=== PATIENT | male | born 1990 | race Caucasian/White ===

== ENCOUNTER 2017-10-02 08:53 | Emergency (ER) | payer MEDICAID, OTHER ==
[2017-10-02 09:00] VITALS: BP 131/84; PULSE 86; RESP 20; TEMP 98
[2017-10-02] MEDS ORDERED: ERYTHROMYCIN 5 MG/GM OPHTH OINT 3.5 GM TUBE RIGHT EYE STA (09:21)
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
== END 2017-10-02 10:25 | disposition home or self-care (01) ==
LOC: EC 08:53
DX: S00.03XA Contusion of scalp, initial encounter (principal); S00.11XA Contusion of right eyelid and periocular area, initial encounter; S00.83XA Contusion of other part of head, initial encounter; F17.200 Nicotine dependence, unspecified, uncomplicated; Y04.0XXA Assault by unarmed brawl or fight, initial encounter; Y92.524 Gas station as the place of occurrence of the external cause
CPT/HCPCS: 70450; 70486; 72125; 99284

== ENCOUNTER 2021-06-27 09:52 | Emergency (ER) | payer BC ==
[2021-06-27 10:12] VITALS: RESP 16; TEMP 98
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
[2021-06-27] MEDS ORDERED: IBUPROFEN 600 MG TAB PO STA (11:04)
[2021-06-27 11:25] VITALS: BP 118/71; PULSE 62
[2021-06-27 11:43] LABS: Appearance,Urine Clear (Clear); Bilirubin,Urine Negative (Negative); Blood,Urine Negative (Negative); Color,Urine Yellow; Glucose,Urine (UA) Negative (Negative); Ketones,Urine Negative (Negative); Leukocyte Esterase,Urine Negative (Negative); Nitrite,Urine Negative (Negative); PH, Urine 5.5 (5.0-8.0); Protein,Urine Negative (Negative); Specific Gravity,Urine 1.026 (1.001-1.035); Urobilinogen,Urine <2.0 mg/dL (<2.0)
[2021-06-27] MEDS ORDERED: LIDOCAINE 5% PATCH TOPICAL STA (12:06)
[2021-06-28] MEDS ORDERED: LIDOCAINE 5% PATCH TOPICAL SCH (09:00)
== END 2021-06-27 12:16 | disposition home or self-care (01) ==
LOC: EC 09:52
DX: S39.012A Strain of muscle, fascia and tendon of lower back, initial encounter (principal); F17.200 Nicotine dependence, unspecified, uncomplicated; F12.90 Cannabis use, unspecified, uncomplicated; X50.0XXA Overexertion from strenuous movement or load, initial encounter
CPT/HCPCS: 81003; 99283

== ENCOUNTER 2022-10-10 15:47 | Emergency (ER) | payer BC, OTHER ==
[2022-10-10 15:55] VITALS: BP 137/99; PULSE 113; RESP 20; TEMP 98.2
[2022-10-10] MEDS ORDERED: DIPH,PERTUS(ACELL)TETVAC-LF 0.5 ML VIAL IM ONE (16:44)
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
== END 2022-10-10 19:03 | disposition home or self-care (01) ==
LOC: EC 15:47
DX: S06.0X0A Concussion without loss of consciousness, initial encounter (principal); S02.2XXA Fracture of nasal bones, initial encounter for closed fracture; S70.311A Abrasion, right thigh, initial encounter; S10.91XA Abrasion of unspecified part of neck, initial encounter; F12.90 Cannabis use, unspecified, uncomplicated; F17.200 Nicotine dependence, unspecified, uncomplicated; V89.2XXA Person injured in unspecified motor-vehicle accident, traffic, initial encounter; Y92.410 Unspecified street and highway as the place of occurrence of the external cause
CPT/HCPCS: 70450; 70486; 72125; 90471; 90715; 99284

== ENCOUNTER 2023-02-05 06:26 | Emergency (ER) | payer SELFPAY ==
[2023-02-05] MEDS ORDERED: MORPHINE SULFATE 4 MG/ML SYRINGE IV STA (06:36)
--- NOTE | 2023-02-05 06:55 | ED ---
General Adult HPI - General Source: patient, RN notes reviewed Mode of arrival: ambulatory Limitations: no limitations <Alexandru Livingston - Last Filed: 02/05/23 10:12> <Henrietta Bradley - Last Filed: 02/05/23 16:22> - General Chief complaint: Extremity Injury, Upper Stated complaint: Fall, Arm Injury Time Seen by Provider: 02/05/23 06:36 - History of Present Illness Initial comments: Patient 32-year-old male presented to the emergency room today with a chief complaint of a fall that occurred just prior to arrival. He does admit that he was walking down some steps and tripped over his dog. Fell down onto the right shoulder. Patient does admit that he doesn't remember striking his head. Lose consciousness. Is not on any blood thinners. He doesn't pain to the right shoulder is with any type of movement. He denies any other injuries or complaints currently. Patient denies any recent fever, chills, shortness of breath, chest pain, back pain, abdominal pain, nausea or vomiting, numbness and tingling, headaches or visual changes, or any other complaints. (Alexandru Livingston) - Related Data Previous Rx's Medication Instructions Recorded HYDROcodone/APAP 5-325MG [[place] 1 tab PO Q6HR PRN 3 Days #12 tab 02/05/23 5-325] Allergies Allergy/AdvReac Type Severity Reaction Status Date / Time No Known Allergies Allergy Verified 02/05/23 06:34 Review of Systems ROS Other: All systems not noted in ROS Statement are negative. <Alexandru Livingston - Last Filed: 02/05/23 10:12> ROS Other: All systems not noted in ROS Statement are negative. <Henrietta Bradley - Last Filed: 02/05/23 16:22> ROS Statement: Those systems with pertinent positive or pertinent negative responses have been documented in the HPI. Past Medical History Past Medical History: No Reported History History of Any Multi-Drug Resistant Organisms: None Reported Past Surgical History: Orthopedic Surgery Additional Past Surgical History / Comment(s): arthroscopy left knee, ACL Past Anesthesia/Blood Transfusion Reactions: No Reported Reaction Past Psychological History: No Psychological Hx Reported Smoking Status: Current every day smoker Past Alcohol Use History: Occasional Past Drug Use History: Marijuana - Past Family History Mother Family Medical History: No Reported History <Alexandru Livingston - Last Filed: 02/05/23 10:12> General Exam Limitations: no limitations <Alexandru Livingston - Last Filed: 02/05/23 10:12> - General Exam Comments Initial Comments: General: The patient is awake and alert, in no distress, and does not appear acutely ill. Neck: The neck is supple, there is no tenderness or JVD. Cardiovascular: There is a regular rate and rhythm. No murmur, rub or gallop is appreciated. Respiratory: Lungs are clear to auscultation, respirations are non-labored, breath sounds are equal. No wheezes, stridor, rales, or rhonchi. Musculoskeletal: Abnormal appearance of the right shoulder. Locally tender over the clavicle and anterior posterior shoulder. Radial pulse 2+. Range of motion of right elbow, wrist and hand. No cervical, thoracic or lumbar spine tender ness. Neurological: A&O x 3. CN II-XII intact, There are no obvious motor or sensory deficits. Coordination appears grossly intact. Speech is normal. Skin: Skin is warm and dry and no rashes or lesions are noted. Psychiatric: Normal mood and affect. (Alexandru Livingston) Course Vital Signs 02/05/23 02/05/23 02/05/23 06:29 09:00 09:15 Temperature 98 F Pulse Rate 104 H 79 85 Respiratory 20 18 18 Rate Blood Pressure 133/90 118/108 116/88 O2 Sat by Pulse 96 99 98 Oximetry 02/05/23 02/05/23 02/05/23 09:19 09:24 09:28 Temperature Pulse Rate 79 72 87 Respiratory 16 16 18 Rate Blood Pressure 113/82 137/60 135/87 O2 Sat by Pulse 98 96 97 Oximetry 02/05/23 02/05/23 02/05/23 09:38 09:53 10:08 Temperature Pulse Rate 80 79 84 Respiratory 18 18 18 Rate Blood Pressure 136/94 138/81 140/100 O2 Sat by Pulse 98 96 97 Oximetry 02/05/23 02/05/23 10:23 10:34 Temperature 97.8 F Pulse Rate 89 86 Respiratory 18 16 Rate Blood Pressure 147/99 140/97 O2 Sat by Pulse 97 99 Oximetry Procedures <Alexandru Livingston - Last Filed: 02/05/23 10:12> - Procedural Sedation *Procedural Sedation Start Time: 09:15 *Procedural Sedation Stop Time: 09:45 *Risks,benefits, and alternative therapies discussed?: Yes *Patient indicates understanding of risk/benefit discussion?: Yes *Indications: fracture/dislocation reduction *Previous Adverse Reaction to Anesthesia/Sedation?: No *ASA Class: I *Mallampati Airway Score: 1 *Time of Last PO Intake: 22:00 Preparation: site monitor applied, pulse oximeter, capnometry used, suppl emental O2 applied, reversal agents at bedside, suction/airway equipment at bedside IV Propofol Dose (mgs): 140 Complications: none Patient Tolerated Procedure: well, no complications <Henrietta Bradley - Last Filed: 02/05/23 16:22> - Procedures Initial comment: Patient was conscious sedated with attending physician Dr. Bradley for a reduction of his right shoulder. Patient right shoulder was reduced with traction/counter traction. Tolerated procedure well. Repeat x-rays showed good reduction. Neurovascular rechecked and intact. (Alexandru Livingston) Medical Decision Making <Alexandru Livingston - Last Filed: 02/05/23 10:12> - Medical Decision Making 32-year-old male presented to the emergency room today with a chief complaint of an injury to the right shoulder. He did trip over his dog falling down a few steps. States he did not lose conscious. Is not on blood thinners. Denies any headache, neck pain, back pain. Patient does admit to pain to the right shoulde r. Had obvious deformity with a dislocation of the right shoulder. X-ray was obtained which did show a apical fracture. There is evidence for dislocation. Patient was conscious sedated here in the emergency room along with attending physician Dr. Bradley. Patient right shoulder was reduced and repeat x-rays showed good reduction. Patient neurovascularly intact. Was given arm sling here in emergency room. Patient will be discharged to follow-up with orthopedics. Given short prescription of pain medication. Advised return for any other concerns. He states understanding and is agreement with the plan. (Alexandru Livingston) Disposition Is patient prescribed a controlled substance at d/c from ED?: Yes If prescribed controlled substance>3 days was MAPS reviewed?: Prescribed <3 Days Time of Disposition: 10:17 <Alexandru Livingston - Last Filed: 02/05/23 10:12> <Henrietta Bradley - Last Filed: 02/05/23 16:22> Clinical Impression: Shoulder dislocation, Clavicle fracture Disposition: HOME SELF-CARE Condition: Good Instructions (If sedation given, give patient instructions): Shoulder Dislocation (ED), Moderate Sedation (ED) Additional Instructions: Please use medication as discussed. Please follow-up with orthopedics in the next 2 days of symptoms have not improved. Please return to emergency room if the symptoms increase or worsen or for any other concerns. Prescriptions: HYDROcodone/APAP 5-325MG [[place] 5-325] 1 tab PO Q6HR PRN 3 Days #12 tab PRN Reason: Pain Referrals: None,Stated [Primary Care Provider] - 1-2 days Manfred Boyle DO [Doctor of Osteopathic Medicine] - 1-2 days
--- NOTE | 2023-02-05 07:16 | XR ---
EXAMINATION TYPE: XR shoulder complete RT DATE OF EXAM: 02/05/2023 6:49 AM CLINICAL INDICATION:Male, 32 years old with history of deformity; [facility] COMPARISON: None TECHNIQUE: XR shoulder complete RT; shoulder was examined in AP, internally rotated and scapular Y p rojections. FINDINGS/IMPRESSION: Anterior-inferior dislocation of the right shoulder with fracture of the humerus is appreciated on fr ontal view.
[2023-02-05] MEDS ORDERED: PROPOFOL 10 MG/ML 20 ML VIAL IV ONE ×2 (08:10→09:17)
[2023-02-05] MEDS ORDERED: SODIUM CHLORIDE 0.9% 1,000 ML IV ONE (09:40)
--- NOTE | 2023-02-05 09:40 | XR ---
EXAMINATION TYPE: XR shoulder limited RT DATE OF EXAM: 02/05/2023 COMPARISON: NONE HISTORY: Pain TECHNIQUE: One view are submitted. FINDINGS: Post reduction view demonstrates anatomic alignment. There is a displaced remote nonunion mid to dist al right clavicular fracture. AC joint is maintained. Elevated right hemidiaphragm. No acute fracture . IMPRESSION: 1. Post reduction single view demonstrates anatomic alignment.
[2023-02-05 10:50] VITALS: BP 140/97; PULSE 86; RESP 16; TEMP 97.8
== END 2023-02-05 10:39 | disposition home or self-care (01) ==
LOC: EC 06:26
DX: S42.031A Displaced fracture of lateral end of right clavicle, initial encounter for closed fracture (principal); S43.014A Anterior dislocation of right humerus, initial encounter; S43.034A Inferior dislocation of right humerus, initial encounter; F17.200 Nicotine dependence, unspecified, uncomplicated; F12.90 Cannabis use, unspecified, uncomplicated; W10.9XXA Fall (on) (from) unspecified stairs and steps, initial encounter; Y93.01 Activity, walking, marching and hiking
CPT/HCPCS: 73020; 73030; 23650; 99152; 99153; 99283; 96374; 96361; J2270; J2704